=== PATIENT | male | born 2000 | race Caucasian/White ===

== ENCOUNTER 2021-10-18 12:47 | Emergency (ER) | payer OTHER ==
[~2021-10-18 12:47] MED LIST: FLOMAX0.4 MG PO; NORCO 5-325 TA1 EACH PO; PERCOCET 5-3251 EACH PO; ZOFRAN ODT 4 MG4 MG PO
== END 2021-10-18 16:30 | disposition left against medical advice (07) ==
LOC: ER1 12:47
DX: Z53.21 Procedure and treatment not carried out due to patient leaving prior to being seen by health care provider (principal)